=== PATIENT | female | born 1995 | race African-American/Black ===

== ENCOUNTER 2020-11-30 15:15 | Emergency (ER) | payer OTHER ==
[~2020-11-30] VITALS: Ht 165.1 cm; Wt 70.0 kg
[2020-11-30] MEDS ORDERED: ACETAMINOPHEN 325MG TABLET PO ONE (16:00)
[2020-11-30 16:36] LABS: BASOPHILS % 0.2 % (0.0-2.0); EOSINOPHILS % 0.2 % (0.0-5.0); HEMATOCRIT. 39.7 % (36.0-48.0); HEMOGLOBIN. 13.3 g/dL (12.0-16.0); LYMPHOCYTES % 13.9 % (20.0-50.0); MEAN CORPUSCULAR HEMOGLOBIN 29.1 pg (28.0-32.0); MEAN CORPUSCULAR VOLUME 86.9 fL (81.0-99.0); MEAN PLATELET VOLUME 8.6 fl (7.4-10.4); MONOCYTES % 7.7 % (2.0-8.0); PLATELET 284 x1000/uL (130-400); RED BLOOD CELL COUNT 4.57 mill/uL (4.2-5.4)
[2020-11-30 16:46] LABS: CHLORIDE 109 mEq/L (98-107)
[2020-11-30 16:56] LABS: HCG SCREEN POSITIVE
[2020-11-30] MEDS ORDERED: PNV1TABL55 MT (18:42)
[2020-11-30 19:40] VITALS: BP 124/76
== END 2020-11-30 19:49 ==
LOC: ER 15:15
DX: O99.02 Anemia complicating childbirth (principal); O26.899 Other specified pregnancy related conditions, unspecified trimester; R53.1 Weakness; R42 Dizziness and giddiness; G43.909 Migraine, unspecified, not intractable, without status migrainosus; Z3A.00 Weeks of gestation of pregnancy not specified; Z79.899 Other long term (current) drug therapy
CPT/HCPCS: 36415; 80053; 81025; 84702; 84703; 85025; 99283

== ENCOUNTER 2021-02-01 22:53 | Emergency (ER) | payer MEDICAID, OTHER ==
[~2021-02-01 22:53] MED LIST: PNV1TABL55 MT
== END 2021-02-01 23:39 | disposition left against medical advice (07) ==
LOC: ER 22:53
DX: R51.9 Headache, unspecified (principal); Z53.21 Procedure and treatment not carried out due to patient leaving prior to being seen by health care provider

== ENCOUNTER 2021-02-18 12:36 | Emergency (ER) | payer MEDICAID ==
[~2021-02-18] VITALS: Ht 160 cm; Wt 88.0 kg
[2021-02-18 16:13] LABS: HEMATOCRIT 36.1 % (36.0-48.0); HEMOGLOBIN 12.3 g/dL (12.0-16.0); MEAN CORPUSCULAR HEMOGLOBIN 29.2 pg (28.0-32.0); MEAN CORPUSCULAR VOLUME 85.7 fL (81.0-99.0); PLATELET 250 x1000/uL (130-400); RED BLOOD CELL COUNT 4.21 mill/uL (4.2-5.4); RED CELL DISTRIBUTION WIDTH 12.3 % (11.6-14.6)
[2021-02-18 16:26] LABS: CHLORIDE 108 mEq/L (98-107)
[2021-02-18 17:24] VITALS: BP 118/70
== END 2021-02-18 17:25 | disposition home or self-care (01) ==
LOC: ER 12:36
DX: O26.892 Other specified pregnancy related conditions, second trimester (principal); S80.12XA Contusion of left lower leg, initial encounter; Y04.0XXA Assault by unarmed brawl or fight, initial encounter; Y93.89 Activity, other specified; Y92.89 Other specified places as the place of occurrence of the external cause; Y99.8 Other external cause status; Z3A.15 15 weeks gestation of pregnancy
CPT/HCPCS: 36415; 73140; 73590; 80048; 81025; 85027; 99284

== ENCOUNTER 2021-04-05 19:05 | Observation (INO) | payer MEDICAID ==
[~2021-04-05] VITALS: Ht 160 cm; Wt 87.1 kg
== END 2021-04-05 21:20 | disposition home or self-care (01) ==
LOC: 8 EST LDRP 19:05
PROVIDERS: ADMIT Obstetrics & Gynecology; ATTEND Obstetrics & Gynecology
DX: Z04.3 Encounter for examination and observation following other accident (principal); Z3A.23 23 weeks gestation of pregnancy; W18.39XA Other fall on same level, initial encounter; Y93.89 Activity, other specified; Y92.89 Other specified places as the place of occurrence of the external cause; Y99.8 Other external cause status
CPT/HCPCS: 59025; 76805; G0378; 99281; G0379

== ENCOUNTER 2021-06-24 20:25 | Observation (INO) | payer MEDICAID ==
[~2021-06-24] VITALS: Ht 160 cm; Wt 89.4 kg
[2021-06-24] MEDS ORDERED: CALCIUM (21:06)
[2021-06-24] MEDS ORDERED: FERR325T6 PO (21:06)
[2021-06-24] MEDS ORDERED: PREN1TAB78 PO (21:06)
[2021-06-24] MEDS ORDERED: LACTATED RINGERS 1,000 ML IV SCH (22:00)
[2021-06-24 22:09] LABS: CLARITY URINE CLOUDY (CLEAR); COLOR URINE YELLOW (YELLOW); KETONES URINE 4+ (NEGATIVE); LEUKOCYTE ESTERASE URINE 2+ (NEGATIVE); NITRITE URINE NEGATIVE (NEGATIVE); OCCULT BLOOD URINE 3+ (NEGATIVE); PH URINE 6.5 (4.5-8.0); PROTEIN URINE NEGATIVE (NEGATIVE); SPECIFIC GRAVITY URINE 1.023 (1.005-1.030)
[2021-06-24 22:09] LABS: HEMATOCRIT. 35.7 % (36.0-48.0); HEMOGLOBIN. 11.8 g/dL (12.0-16.0); MEAN CORPUSCULAR HEMOGLOBIN 29.2 pg (28.0-32.0); MEAN CORPUSCULAR VOLUME 88.3 fL (81.0-99.0); PLATELET 183 x1000/uL (130-400); RED BLOOD CELL COUNT 4.05 mill/uL (4.2-5.4); RED CELL DISTRIBUTION WIDTH 13.3 % (11.6-14.6)
[2021-06-24 22:11] LABS: CHLORIDE 109 mEq/L (98-107)
[2021-06-24 22:30] LABS: CANNABINOID URINE SCREEN NEGATIVE (NEGATIVE)
[2021-06-24 22:31] LABS: *AMPHETAMINES SCREEN URINE NEGATIVE (NEGATIVE); *BARBITURATES SCREEN URINE NEGATIVE (NEGATIVE); *BENZODIAZEPINES SCREEN URINE NEGATIVE (NEGATIVE); *COCAINE SCREEN URINE NEGATIVE (NEGATIVE); METHADONE URINE SCREEN NEGATIVE (NEGATIVE)
[2021-06-24 22:32] LABS: OPIATES URINE SCREEN NEGATIVE (NEGATIVE); PHENCYCLIDINE URINE SCREEN NEGATIVE (NEGATIVE)
[2021-06-24] MEDS ORDERED: DEXT 5%/LACTATED RINGERS 1,000 ML IV SCH (23:00)
[2021-06-24] MEDS ORDERED: CEFAZOLIN 2,000 MG in DEXT 5% WATER 100 ML IV NR (23:00)
[2021-06-24] MEDS ORDERED: TERBUTALINE SULFATE 1MG/ML VIAL SUBCUT PRN (23:45)
[2021-06-25 00:25] LABS: PLATELET ESTIMATE NORMAL
== END 2021-06-25 01:40 | disposition home or self-care (01) ==
LOC: 8 EST LDRP 20:25
PROVIDERS: ADMIT Obstetrics & Gynecology; ATTEND Obstetrics & Gynecology
DX: O46.93 Antepartum hemorrhage, unspecified, third trimester (principal); Z20.822 Contact with and (suspected) exposure to COVID-19; Z79.899 Other long term (current) drug therapy; Z3A.34 34 weeks gestation of pregnancy
CPT/HCPCS: 36415; 59025; 76805; 76818; 80053; 80305; 81003; 85025; 87086; 87426; 96361; 96365; 96372; G0378; J0690; J3105; J7060; 96360; 99281

== ENCOUNTER 2021-06-26 18:31 | Observation (INO) | payer MEDICAID ==
[~2021-06-26] VITALS: Ht 160 cm; Wt 89.4 kg
[~2021-06-26 18:31] MED LIST changes: +CALCIUM; +FERR325T6 PO; +PREN1TAB78 PO
[2021-06-26 19:32] LABS: CLARITY URINE CLEAR (CLEAR); COLOR URINE YELLOW (YELLOW); KETONES URINE TRACE (NEGATIVE); LEUKOCYTE ESTERASE URINE 1+ (NEGATIVE); NITRITE URINE NEGATIVE (NEGATIVE); OCCULT BLOOD URINE NEGATIVE (NEGATIVE); PH URINE 6.5 (4.5-8.0); PROTEIN URINE NEGATIVE (NEGATIVE); SPECIFIC GRAVITY URINE 1.023 (1.005-1.030)
== END 2021-06-26 20:25 | disposition home or self-care (01) ==
LOC: 8 EST LDRP 18:31
PROVIDERS: ADMIT Obstetrics & Gynecology; ATTEND Obstetrics & Gynecology
DX: O62.9 Abnormality of forces of labor, unspecified (principal); O26.893 Other specified pregnancy related conditions, third trimester; R10.9 Unspecified abdominal pain; O99.891 Other specified diseases and conditions complicating pregnancy; M54.9 Dorsalgia, unspecified; Z3A.34 34 weeks gestation of pregnancy
CPT/HCPCS: 59025; 81003; G0378; 99281

== ENCOUNTER 2021-11-17 17:37 | Emergency (ER) | payer OTHER, MEDICAID ==
[~2021-11-17] VITALS: Ht 167.6 cm; Wt 82.0 kg
[2021-11-17] MEDS ORDERED: ACETAMINOPHEN 500MG TABLET PO ONE (18:15)
[2021-11-17] MEDS ORDERED: IBUPROFEN 400MG TABLET PO NR (19:00)
[2021-11-17 19:05] VITALS: BP 120/71
[2021-11-17] MEDS ORDERED: CEPH500T MT (19:57)
== END 2021-11-17 19:14 ==
LOC: ER 17:37
DX: L03.311 Cellulitis of abdominal wall (principal); S01.412A Laceration without foreign body of left cheek and temporomandibular area, initial encounter; Y04.2XXA Assault by strike against or bumped into by another person, initial encounter; Y93.89 Activity, other specified; Y92.89 Other specified places as the place of occurrence of the external cause
CPT/HCPCS: 70486; 81025; 99284